=== PATIENT | male | born 1970 | race Two or more races ===

== ENCOUNTER 2019-06-23 14:27 | Emergency (ER) | payer SELFPAY ==
[~2019-06-23] VITALS: Ht 177.8 cm; Wt 90.9 kg
[2019-06-23 16:15] VITALS: BP 160/100
[2019-06-23] MEDS ORDERED: DIPH,PERTUSS(ACELL),TET VAC/PF 0.5 ML SYRINGE. VAX IM ONE (16:30)
[2019-06-23] MEDS ORDERED: HYDR-3164 PO (16:43)
--- NOTE | 2019-06-23 16:43 | PHYS DOC ---
Past Medical History Past Medical History: No Pertinent History Past Surgical History: No Surgical History Smoking Status: Never Smoker Alcohol Use: None Adult General Chief Complaint Chief Complaint: ABSCESS HPI HPI Patient is a 49 year old Japanese-speaking male who presents the ED today complaining of left upper chest abscess that began a week ago. Patient was seen at a local clinic and reports he was started on clindamycin on last week. He went back to the clinic today and they attempted to drain the abscess with no success so they put patient on Augmentin and he came to the ED. He has not filled the prescription for Augmentin. Denies any fever. Patient is Japanese-speaking and interpretation is provided by general maintenance engineer of Systems Review of Systems Constitutional: Denies fever or chills [] Musculoskeletal: Denies back pain or joint pain [] Integument: Reports left chest abscess Neurologic: Denies headache, focal weakness or sensory changes [] All other systems were reviewed and found to be within normal limits, except as documented in this note. Current Medications Current Medications Current Medications Medications (Trade) Dose Ordered Sig/Giancarlo Start Time Stop Time Status Last Admin Dose Admin Diphtheria/ Tetanus/Acell Pertussis (ADACEL TDap SYRINGE) 0.5 ml ONCE ONCE 06/23/19 16:30 06/23/19 16:31 DC Allergies Allergies Allergies Coded Allergies Type Severity Reaction Last Updated Verified No Known Drug Allergies 06/23/19 No Physical Exam Physical Exam Constitutional: Well developed, well nourished, no acute distress, non-toxic appearance. [] Skin: Left upper chest beside the breast with no nipple involvement or areola with an open wound approximately 1 x 1 cm with surrounding mild cellulitis. The wound is draining yellow purulent bloody material. Back: No tenderness, no CVA tenderness. [] Extremities: No tenderness, no cyanosis, no clubbing, ROM intact, no edema. [] Neurologic: Alert and oriented X 3, normal motor function, normal sensory function, no focal deficits noted. [] Psychologic: Affect normal, judgement normal, mood normal. [] Current Patient Data Vital Signs Vital Signs Date Time Temp Pulse Resp B/P (MAP) Pulse Ox O2 Delivery O2 Flow Rate FiO2 06/23/19 16:15 98.6 81 17 160/100 (120) 98 Room Air 98.6 EKG EKG [] Radiology/Procedures Radiology/Procedures Indication: abscess left chest wall Procedure: The patient was positioned appropriately. Local anesthesia was not applicable. Moderate amount of bloody yellow purulent material was expressed. The drainage cavity was irrigated and covered with sterile gauze. The patients tetanus status updated as needed. The patient tolerated the procedure well. Complications: none.[] Course & Med Decision Making Course & Med Decision Making Pertinent Labs and Imaging studies reviewed. (See chart for details) This is a 49-year-old male patient with an abscess with cellulitis on the left chest that was drained by me as noted in procedures. Tetanus was updated. Patient has a prescription of Augmentin that he was given from one of the local clinics. Encourage him to fill the prescription and take the medicines. Dragon Disclaimer Dragon Disclaimer This electronic medical record was generated, in whole or in part, using a voice recognition dictation system. Departure Departure Impression: Primary Impression: Abscess or cellulitis of chest wall Disposition: HOME, SELF-CARE Condition: STABLE Referrals: UNKNOWN PCP NAME (PCP) follow up with the clinic next week Patient Instructions: Abscess, [id number] Additional Instructions: Please fill prescription you got from your doctor as soon as you can complete you antibiotics. Scripts Hydrocodone/Apap 5-325 (NORCO 5-325 TABLET) 1 Each Tablet 1 TAB PO Q6HRS, #12 TAB Prov: JAYE PRATER APRN 06/23/19 JAYE PRATER APRN Jun 23, 2019 16:43
== END 2019-06-23 16:51 | disposition home or self-care (01) ==
LOC: ER 14:27
DX: L02.213 Cutaneous abscess of chest wall (principal)
CPT/HCPCS: 10060; 90471; 90715; 99283